=== PATIENT | male | born 1960 | race Caucasian/White ===

== ENCOUNTER 2017-02-13 05:32 | Emergency (ER) | payer SELFPAY ==
[~2017-02-13] VITALS: Ht 167.6 cm; Wt 72.6 kg
[~2017-02-13 05:32] MED LIST: RISP1TAB1 PO
[2017-02-13 06:01] VITALS: BP 138/90
--- NOTE | 2017-02-13 06:07 | NUR ---
to lobby amb , vs stable ,a/w for bed, christal noted
== END 2017-02-13 06:50 | disposition left against medical advice (07) ==
LOC: MED 05:32
DX: M54.5 Low back pain (principal); Z53.21 Procedure and treatment not carried out due to patient leaving prior to being seen by health care provider

== ENCOUNTER 2017-02-13 07:44 | Emergency (ER) | payer BC, MEDICAID ==
[~2017-02-13] VITALS: Ht 167.6 cm; Wt 72.6 kg
[2017-02-13 08:20] VITALS: BP 166/103
--- NOTE | 2017-02-13 08:30 | NUR ---
56M BIB FAMILY C/O 11/23 "SHARP" NON RADIATING CONSTANT RT INNER THIGH PAIN AND BL LOWER BACK PAIN X 3 DAYS. PT STATES NO TRAUMA OR INJURY TO SITE AT THIS TIME. PT ALSO REPORTS OF PRODUCTIVE COUGH X 3 DAYS. PT STATES "IT HURTS WHEN I BREATHE". PT ALSO REPORTS OF RIGHT MID ABD PAIN WITH N/V/D X 2 DAYS; PT IS AOX4, RR ARE EVEN AND UNLABORED. PT POSITIONED TO COMFORT, BED DOWN. ALL NEEDS MET AT THIS TIME. AWAITING ER MD IBARRA. WILL CONTINUE TO MONITOR.
--- NOTE | 2017-02-13 09:15 | NUR ---
ER MD NARAYANAN BY BEDSIDE EXAMINING PT
[2017-02-13] MEDS ORDERED: MORPHINE SULFATE 4 MG/ML SYR IM ONE (09:20)
[2017-02-13] MEDS ORDERED: MORPHINE SULFATE 5 MG/ML VIAL ONE (09:42)
[2017-02-13] MEDS ORDERED: NACL 0.9% 1,000 ML IV SCH (09:44)
--- NOTE | 2017-02-13 10:03 | NUR ---
PT TO CT VIA [facility] ACCOMPANIED BY NUCLEAR DESIGN ENGINEER
--- NOTE | 2017-02-13 10:20 | NUR ---
PT TO RETURNED FROM CT VIA [facility], WITHOUT ANY INCIDENT
[2017-02-13 10:39] LABS: BASOPHILS # (AUTO) 0.2 K/uL (0.00-0.22); BASOPHILS % (AUTO) 2.4 % (0.0-2.0); EOSINOPHILS % (AUTO) 0.6 % (0.0-4.0); HEMATOCRIT 49.1 % (36-52); HEMOGLOBIN 16.3 g/dL (12.0-18.0); LYMPHOCYTES # (AUTO) 0.7 K/uL (2.0-11.5); LYMPHOCYTES % (AUTO) 9.3 % (20.5-51.1); MEAN CORPUSCULAR HEMOGLOBIN 30 pg (27-31); MEAN CORPUSCULAR HGB CONC 33 g/dL (33-37); MEAN CORPUSCULAR VOLUME 89 fL (80-94); MONOCYTES # (AUTO) 1.2 K/uL (0.8-1.0); MONOCYTES % (AUTO) 15.9 % (1.7-9.3); NEUTROPHILS # (AUTO) 5.4 K/uL (1.8-7.7); NEUTROPHILS % (AUTO) 71.8 % (42.2-75.2); PLATELET COUNT (AUTO) 207 K/uL (140-450); RED BLOOD CELL COUNT(AUTO) 5.52 MIL/uL (4.20-6.10); WHITE BLOOD COUNT (AUTO) 7.5 K/uL (4.8-10.8)
[2017-02-13 10:46] LABS: ANION GAP 13.7 (8-16); CARBON DIOXIDE 25.8 mmol/L (21-32); CREATININE 0.9 mg/dL (0.7-1.3); POTASSIUM 3.5 mmol/L (3.5-5.1)
[2017-02-13 10:49] LABS: APPEARANCE,URINE HAZY (CLEAR); BILIRUBIN,URINE NEGATIVE (NEGATIVE); BLOOD, URINE 2+ (NEGATIVE); COLOR,URINE YELLOW (YELLOW); LEUKOCYTE ESTERASE ,URINE NEGATIVE (NEGATIVE); NITRITE, URINE NEGATIVE (NEGATIVE); UGLUCOSE NEGATIVE (NEGATIVE)
[2017-02-13 10:51] LABS: ALBUMIN 3.7 g/dL (3.4-5.0); TOTAL BILIRUBIN 0.4 mg/dL (0.0-1.0)
[2017-02-13 10:58] LABS: RBC,URINE 11-20 (MOD) /HPF (0-5); WBC,URINE 0-5 (RARE) /HPF (0-5)
[2017-02-13 12:15] VITALS: BP 162/100
--- NOTE | 2017-02-13 12:15 | NUR ---
Patient discharged with v/s stable. Written and verbal after care instructions given and explained. Patient alert, oriented and verbalized understanding of instructions. Ambulatory with steady gait. All questions addressed prior to discharge. ID band removed. Patient advised to follow up with PMD. Rx of Motrin and [place] 5 given. Patient educated on indication of medication including possible reaction and side effects. Opportunity to ask questions provided and answered.
== END 2017-02-13 12:15 | disposition home or self-care (01) ==
LOC: MED 07:44
DX: M54.5 Low back pain (principal); R11.2 Nausea with vomiting, unspecified; R07.9 Chest pain, unspecified; Z85.068 Personal history of other malignant neoplasm of small intestine; F17.200 Nicotine dependence, unspecified, uncomplicated
CPT/HCPCS: 36415; 74176; 80053; 81001; 83690; 85025; 87086; 96360; 96372; 99285; J2270; J7030